=== PATIENT | male | born 1990 | race Caucasian/White ===

== ENCOUNTER 2018-04-01 13:40 | Emergency (ER) | payer OTHER ==
[2018-04-01 14:14] VITALS: BP 121/74; PULSE 73; RESP 18; TEMP 98.2
[2018-04-01] MEDS ORDERED: LIDOCAINE 1% INJ 10MG/ML (20 ML MDV) SQ STA (14:34)
--- NOTE | 2018-04-01 14:38 | ED ---
General Adult HPI - General Chief complaint: Wound/Laceration Stated complaint: hand laceration Time Seen by Provider: 04/01/18 14:16 Source: patient, RN notes reviewed Mode of arrival: ambulatory Limitations: no limitations - History of Present Illness Initial comments: Patient is a 27-year-old male who presents the emergency department with complaints of a laceration to his right hand that happened about an hour and a half ago. He was working on a roof and cut his hand on a hook blade. He reports that he is up-to-date on his tetanus vaccination. Patient denies any recent fever, chills, shortness of breath, chest pain, back pain, abdominal pain , nausea or vomiting, numbness or tingling, headaches or visual changes, or any other complaints. - Related Data Previous Rx's Medication Instructions Recorded Dexamethasone 0.75 mg PO DIRECTED #12 tablet 02/08/15 Ibuprofen [Motrin] 800 mg PO Q6HR PRN #30 tab 02/08/15 Cephalexin [Keflex] 500 mg PO Q6HR 3 Days #12 cap 04/01/18 Allergies Allergy/AdvReac Type Severity Reaction Status Date / Time No Known Allergies Allergy Verified 02/08/15 14:00 Review of Systems ROS Statement: Those systems with pertinent positive or pertinent negative responses have been documented in the HPI. ROS Other: All systems not noted in ROS Statement are negative. Past Medical History Past Medical History: Asthma History of Any Multi-Drug Resistant Organisms: MRSA Date of last positivie culture/infection: face 2011 Past Surgical History: No Surgical Hx Reported Past Psychological History: No Psychological Hx Reported Smoking Status: Current every day smoker Past Alcohol Use History: Occasional Past Drug Use History: Marijuana General Exam - General Exam Comments Initial Comments: General: Well-developed, well-nourished, no acute distress HEENT: Normocephalic/atraumatic, PERRL Neck: Supple, nontender Chest/Lungs: Normal respirations, no signs of respiratory distress, clear to auscultation bilaterally, no wheezes, rales, or rhonchi Cardiac: Regular rate and rhythm, normal S1-S2, no murmurs rubs or gallops Musculoskeletal: Moving all extremities. Upper extremities: Tenderness over the right 5th digit, full range of motion, sensation intact. Skin: Warmth, no cyanosis or diaphoresis Neurologic: A&O x 3 Psychiatric: Mood and affect normal, judgment normal Limitations: no limitations Course Vital Signs 04/01/18 14:11 Temperature 98.2 F Pulse Rate 73 Respiratory 18 Rate Blood Pressure 121/74 O2 Sat by Pulse 100 Oximetry Procedures - Laceration Laceration #1 Consent Obtained: verbal consent Time Out Performed: Yes Indication: laceration Site: hand Size (cm): 4 Description: linear Depth: simple, single layer Sedation/Analgesia: none Anesthetic Used: lidocaine 1%, without epi Anesthesia Technique: local infiltration Amount (mls): 5 Pre-repair: wound explored, irrigated extensively Type of Sutures: nylon Size of Sutures: 4-0 Number of Sutures: 3 Technique: simple, interrupted Patient Tolerated Procedure: well, no complications Additional Comments: Neurovascularly intact following procedure. Medical Decision Making - Medical Decision Making Patient is a 27-year-old male who presents to the emergency department with a 4 cm laceration to his right hand. He denied needing any pain medication at this time. He states that he is up-to-date on his tetanus vaccination. The wound was sutured. The hand is neurovascularly intact following the procedure. He will be prescribed Keflex. He is to return in 10 days for suture removal. Disposition Clinical Impression: Laceration Disposition: HOME SELF-CARE Condition: Good Instructions: Care For Your Stitches (ED) Additional Instructions: Follow-up with PCP in 2 days. Return to emergency department if any redness, swelling, drainage, warmth, or fevers as these could be signs of infection. Return to emergency department in 10 days for suture removal. Prescriptions: Cephalexin [Keflex] 500 mg PO Q6HR 3 Days #12 cap Is patient prescribed a controlled substance at d/c from ED?: No Referrals: None,Stated [Primary Care Provider] - 1-2 days Time of Disposition: 15:48
== END 2018-04-01 15:57 | disposition home or self-care (01) ==
LOC: EC 13:40
DX: S61.411A Laceration without foreign body of right hand, initial encounter (principal); F17.200 Nicotine dependence, unspecified, uncomplicated; Z86.14 Personal history of Methicillin resistant Staphylococcus aureus infection; W26.8XXA Contact with other sharp object(s), not elsewhere classified, initial encounter; Y92.89 Other specified places as the place of occurrence of the external cause
CPT/HCPCS: 99282; 12002; J2001